=== PATIENT | male | born 1950 | race Caucasian/White ===

== ENCOUNTER → 2017-04-28 | Outpatient (CLI) | payer MEDICARE ==
[2017-04-28 11:07] LABS: Albumin 4.3 g/dL (3.5-5.0); Calcium 9.5 mg/dL (8.4-10.2); Potassium 5.1 mmol/L (3.5-5.1); Total Bilirubin 0.3 mg/dL (0.2-1.3)
== END | disposition home or self-care (01) ==
LOC: LABWHC1 09:52
PROVIDERS: ATTEND Internal Medicine Interventional Cardiology
DX: E78.2 Mixed hyperlipidemia (principal)
CPT/HCPCS: 36415; 80053; 80061

== ENCOUNTER 2017-08-23 13:44 | Day surgery (SDC) | payer MEDICARE ==
[2017-08-17 10:50] VITALS: BMI 29.9
[2017-08-23 14:29] LABS: Basophils % (A) 0 %; Eosinophils # (A) 0.3 k/uL (0-0.7); Eosinophils % (A) 4 %; HCT 43.5 % (39.0-53.0); HGB 14.9 gm/dL (13.0-17.5); Lymphocytes # (A) 2.7 k/uL (1.0-4.8); Lymphocytes % (A) 31 %; MCH 31.4 pg (25.0-35.0); MCHC 34.2 g/dL (31.0-37.0); MCV 91.9 fL (80.0-100.0); Mean Platelet Volume 7.2; Monocytes # (A) 0.6 k/uL (0-1.0); Monocytes % (A) 7 %; Neutrophils # (A) 4.8 k/uL (1.3-7.7); Neutrophils % (A) 56 %; Platelet Count 190 k/uL (150-450); RBC 4.73 m/uL (4.30-5.90); RDW 12.9 % (11.5-15.5); WBC 8.6 k/uL (3.8-10.6)
[2017-08-23 14:33] LABS: Glucose,Whole Blood 112 mg/dL (75-99)
[2017-08-23 14:37] LABS: Calcium 9.3 mg/dL (8.4-10.2); INR 1.4 (<1.2); Prothrombin Time 13.2 sec (9.0-12.0)
[2017-08-23 14:41] LABS: Potassium 5.1 mmol/L (3.5-5.1)
[2017-08-23] MEDS ORDERED: SODIUM CHLORIDE 0.9% 400 ML IV ONE (15:52)
[2017-08-23] MEDS ORDERED: LIDOCAINE 1% INJ 10MG/ML (20 ML MDV) ONE ×3 (16:11→16:44)
[2017-08-23] MEDS ORDERED: ACETAMINOPHEN TAB 325 MG TAB PO PRN (16:24)
[2017-08-23] MEDS ORDERED: HYDROcodone/APAP 5-325MG 1 EACH TAB PO PRN (16:24)
[2017-08-23] MEDS ORDERED: ACETAMINOPHEN IV (For NPO) 1,000 MG in EMPTY BAG 1 BAG IVPB ONE (16:24)
[2017-08-23] MEDS ORDERED: ceFAZolin 1,000 MG in SODIUM CHLORIDE 0.9% IRRIGATIO 250 ML IRRIGATION ONE (16:25)
[2017-08-23] MEDS ORDERED: ceFAZolin IN SWFI 2 GM/20 ML SYRINGE IVP ONE (16:25)
[2017-08-23] MEDS ORDERED: PHENYLEPHRINE-0.9% NACL SYG 1 MG/10 ML SYRINGE ONE (16:29)
[2017-08-23] MEDS ORDERED: fentaNYL (PF) 50 MCG/ML 2 ML AMP ONE (16:29)
[2017-08-23] MEDS ORDERED: MIDAZOLAM 2 MG/2 ML VIAL ONE (16:29)
[2017-08-23] MEDS ORDERED: PROPOFOL 10 MG/ML 20 ML VIAL IV ONE (16:29)
[2017-08-23] MEDS: LIDOCAINE 1% INJ 10MG/ML (20 ML MDV) ONE ×2 (16:38→17:42)
[2017-08-23] MEDS ORDERED: LACTATED RINGERS 1,000 ML IV ONE (17:00)
[2017-08-23] MEDS ORDERED: ceFAZolin IN SWFI 2 GM/20 ML SYRINGE IVP SCH (18:00)
[2017-08-23] MEDS: LACTATED RINGERS 1,000 ML IV SCH (18:11)
[2017-08-23] MEDS ORDERED: ACETAMINOPHEN IV (For NPO) 1,000 MG/100 ML VIAL IVPB ONE (18:30)
[2017-08-23] MEDS ORDERED: DEXTROSE 50%-WATER 50 ML SYRINGE IVP ONE (19:12)
--- NOTE | 2017-08-23 19:16 | PCN ---
PROCEDURE NOTE Mr. Parks is a gentleman who underwent single-chamber ICD implantation for primary prevention of sudden cardiac based upon the data. He has severe ischemic cardiomyopathy, ejection fraction 30-35% of chronic nature. On guideline directed medical treatment. 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 Patient was brought to the EP lab in a fasting state. Written informed consent was obtained prior to the procedure. The left shoulder area was prepped and draped as per protocol. 1% lidocaine was used for local anesthesia. A 4 cm incision was made parallel to the deltopectoral groove, about 1.5 cm medial to it. The incision was carried down to the level of the pectoralis muscle. A subfascial pocket was made. Hemostasis was assured. The left axillary vein was accessed at a single point under fluoroscopy and via appropriately-sized introducer sheath a lead was positioned in the RV septum and screwed in using the current of injury protocol. The R-waves were 30 mV, pacing impedance 1391 ohms, pacing threshold 1 V at 0.5 milliseconds. 10 V test negative. Both leads were secured to the underlying pectoralis fascia using 2 nonabsorbable sutures. Pocket was irrigated with antibiotic solution. Leads connected to the generator (Medtronic device model number [id number], serial number [id number]). The RV lead was a Medtronic model #6935M 62 cm length and serial number [id number]. This was screwed in the RV septum. Using COI protocol. The current of injury protocol. The patient tolerated the procedure well without any acute complications. The wound was closed in 3 layers and dressed per protocol. The device was then programmed to a backup pacing of VVI 40 beats per minute and a VF zone at 214 beats per minute. VT zone at 176 beats per minute. The monitor VT zone of 150 beats per minute. Appropriate antitachycardia pacing cardioversion defibrillation programmed and DFT testing was deferred at this point. It will be performed in 3 months with further maximization of medical treatment. The patient tolerated the procedure well without any acute complications. MMODL / IJN: [id number] /
[2017-08-23 19:23] LABS: Glucose,Whole Blood 62 mg/dL (75-99)
[2017-08-23 19:23] LABS: Glucose,Whole Blood 61 mg/dL (75-99)
[2017-08-23 19:35] LABS: Glucose,Whole Blood 113 mg/dL (75-99)
--- NOTE | 2017-08-23 19:57 | CT ---
EXAMINATION TYPE: CT brain wo con DATE OF EXAM: 08/23/2017 COMPARISON: NONE HISTORY: Diplopia after pacemaker insertion. CT DLP: 991.3 mGycm Automated exposure control for dose reduction was used. FINDINGS: There is diffuse cerebral cortical atrophy. There is no mass effect nor midline shift. There is no ev idence of intracranial hemorrhage. There is patchy hypodensity in the periventricular white matter. T he calvarium is intact. IMPRESSION: CEREBRAL ATROPHY AND MODERATE CHRONIC SMALL VESSEL ISCHEMIA. NO ACUTE INTRACRANIAL ABNORMALITY.
[2017-08-23] MEDS ORDERED: ATORVASTATIN 80 MG TAB PO SCH (21:00)
[2017-08-23] MEDS ORDERED: AMITRIPTYLINE HCL 50 MG TAB PO SCH (21:00)
--- NOTE | 2017-08-23 21:47 | P.CNNES ---
History of Present Illness Consult date: 08/23/17 Reason for Consult: Patient being evaluated for diplopia of 1 week duration. History of Present Illness: This patient is a 66-year-old right-handed white male who has a history of severe cardiomyopathy. Patient was admitted today for outpatient procedure which was placement of a single-chamber ICD implantation for primary prevention of sudden cardiac . As noted patient has a history of severe ischemic cardiomyopathy with a ejection fraction of 30%. It is been chronic in nature. He is followed in the cardiology clinic with Dr. Eagle and Dr. Dye. He underwent the procedure today successfully and was making good recovery. He did mention to Dr. Dye that he was having double vision for the past 4 days. For this reason neurology was consulted today for further evaluation. He was also complaining of bitemporal headache pain. The patient states that he has a history of having undergone three-vessel coronary artery bypass grafting in 2007 when he was in [place]. He was working at the time as a what job titles mean. [facility] was [facility] [place] [facility]. He has been back since his heart surgery and is followed [facility] [place]. He states that he had no previous history of double vision until 4 days ago. He describes it as a horizontal diplopia. Due to his sudden onset of symptoms he was sent for a stat computed tomography scan of the brain today the results of which indicated cerebral atrophy and moderate chronic small vessel ischemia. No acute intracranial abnormality was noted. We would like to obtain an MRI of the brain for further evaluation however given the ICD implantation he may not be able to have an MRI done. We will need to check this with Dr. Dye tomorrow. The patient states that his double vision is easily managed if he covers one eye. We have recommended that he use an eye patch. Being [facility] he should follow-up with a building principal through the [facility] in [place]. We did review the results of the CAT scan today with the patient. He has been on Coumadin therapy since his bypass surgery in 2007. His INR today was 1.4. He is being followed by his rn rehab following the procedure. As noted he is unable to have MRI at this time unless cleared by Dr. Ruelas given that he had a ICD implantation today. We would recommend further testing for his risk factors for stroke including carotid Doppler ultrasound as well as laboratory testing to include lipid profile. Patient denies any previous history of stroke. His clinical history and exam findings suggest possibility of brainstem ischemia. Once again MRI would be the best neurodiagnostic tests for him. We will await further assessment from ophthalmology and cardiology. The patient otherwise seems to be doing well. He denies any focal weakness, slurred speech, or paresthesias. He has been complaining of bitemporal headache as well which has been off and on. He states he uses Anacin which is been working quite well for him. Neurology is now been consulted for further evaluation and recommendations. Review of Systems Constitutional: Denies chills, Denies fever Eyes: left diplopia, denies blurred vision, denies pain Ears, nose, mouth and throat: Denies headache, Denies sore throat Cardiovascular: Denies chest pain, Denies shortness of breath Respiratory: Denies cough Gastrointestinal: Denies abdominal pain, Denies diarrhea, Denies nausea, Denies vomiting Musculoskeletal: Denies myalgias Integumentary: Denies pruritus, Denies rash Neurological: Reports double vision, Denies numbness, Denies weakness Psychiatric: Denies anxiety, Denies depression Endocrine: Denies fatigue, Denies weight change Past Medical History Past Medical History: Diabetes Mellitus, Pulmonary Embolus (PE) Additional Past Medical History / Comment(s): see Dr Dye H&P, states kidney problem-not sure what but will be seeing kidney doctor History of Any Multi-Drug Resistant Organisms: None Reported Past Surgical History: Coronary Bypass/CABG, Joint Replacement Additional Past Surgical History / Comment(s): triple CABG 2007, rt knee replacement, surgery left thumb from injury, Past Anesthesia/Blood Transfusion Reactions: No Reported Reaction Smoking Status: Former smoker - Past Family History Mother Family Medical History: Cancer Medications and Allergies Home Medications Medication Instructions Recorded Confirmed Type Amitriptyline HCl [Elavil] 150 mg PO HS 08/17/17 08/17/17 History Aspirin [Adult Low Dose Aspirin EC] 81 mg PO DAILY 08/17/17 08/17/17 History Atorvastatin Calcium [Lipitor] 80 mg PO HS 08/17/17 08/17/17 History Docusate [Colace] 300 mg PO DAILY 08/17/17 08/17/17 History HYDROcodone/APAP 10-325MG [[place] 2 tab PO QID PRN 08/17/17 08/17/17 History 10-325] Insulin Aspart [NovoLOG Flexpen] 20 units SQ AC-TID 08/17/17 08/17/17 History Lisinopril [Zestril] 20 mg PO DAILY 08/17/17 08/17/17 History Metoprolol Tartrate [Lopressor] 50 mg PO BID 08/17/17 08/17/17 History Sildenafil Citrate [Viagra] 100 mg PO DIRECTED PRN 08/17/17 08/23/17 History Warfarin [Coumadin] 5 mg PO DAILY 08/17/17 08/17/17 History Allergies Allergy/AdvReac Type Severity Reaction Status Date / Time No Known Allergies Allergy Verified 08/17/17 10:31 Physical Examination - Vital Signs Vital Signs: Vital Signs Temp Pulse Pulse Pulse Resp BP BP 08/23/17 19:44 98.0 F 58 L 18 145/86 08/23/17 19:17 59 L 18 138/74 08/23/17 18:55 58 L 16 139/73 08/23/17 18:40 59 L 16 1134/73 08/23/17 18:25 62 18 115/59 08/23/17 18:10 97.0 F L 68 16 117/61 08/23/17 14:21 98.2 F 66 20 159/78 Pulse Ox 08/23/17 19:44 96 08/23/17 19:17 97 08/23/17 18:55 98 08/23/17 18:40 97 08/23/17 18:25 98 08/23/17 18:10 98 08/23/17 14:21 97 Intake and Output 08/23/17 08/23/17 08/23/17 06:59 14:59 22:59 Intake Total 1000 Balance 1000 Intake: IV 1000 - Constitutional General appearance: average body habitus, cooperative - EENT EENT: PERRL, mucous membranes moist - Respiratory Respiratory: lungs clear, normal breath sounds - Cardiovascular Cardiovascular: regular rate, normal S1, normal S2 Extremities: no peripheral edema bilaterally - Gastrointestinal Gastrointestinal: normoactive bowel sounds - Integumentary Integumentary: normal - Neurologic Cranial nerve examination: PERRL, EOMI (Patient has a left sixth cranial nerve palsy.), VFF, V1/V2/V3 grossly intact, face symmetric, tongue midline, intact gag reflex, intact corneal reflex, normal palatal elevation Speech examination: intact Sensorimotor examination: intact Motor examination - right side: 4/5: biceps, triceps, wrist flexion, wrist extension, dog or horse racing official, hip flexors, knee extensors, dorsiflexion, toe extension (EHL) , plantarflexion Motor examination - left side: 4/5: biceps, triceps, wrist flexion, wrist extension, dog or horse racing official, hip flexors, knee extensors, dorsiflexion, toe extension (EHL) , plantarflexion Detailed sensory examination: intact Reflex and gait examination: intact Reflexes: 1+: ankle, bicep, knee, tricep - Musculoskeletal Musculoskeletal: no pain - Psychiatric Psychiatric: mood/affect appropriate, cooperative Results - Laboratory Findings CBC and BMP: 08/23/17 14:20 08/23/17 14:20 Abnormal Lab Findings: Abnormal Labs 08/23/17 08/23/17 08/23/17 14:15 14:20 14:20 PT 13.2 H INR 1.4 H Chloride 109 H Carbon Dioxide 20 L BUN 22 H Creatinine 2.20 H Glucose 100 H POC Glucose (mg/dL) 112 H 08/23/17 08/23/17 08/23/17 19:00 19:02 19:34 PT INR Chloride Carbon Dioxide BUN Creatinine Glucose POC Glucose (mg/dL) 61 L 62 L 113 H Assessment and Plan (1) Sixth [abducent] nerve palsy, left eye Current Visit: Yes Status: Acute Code(s): H49.22 - SIXTH [ABDUCENT] NERVE PALSY, LEFT EYE SNOMED Code(s): 962919537 (2) Chronic headache Current Visit: Yes Status: Acute Code(s): R51 - HEADACHE SNOMED Code(s): 091819513 (3) Ischemic cardiomyopathy Current Visit: Yes Status: Acute Code(s): I25.5 - ISCHEMIC CARDIOMYOPATHY SNOMED Code(s): 432650037 (4) S/P implantation of automatic cardioverter/defibrillator (AICD) Current Visit: Yes Status: Acute Code(s): Z95.810 - PRESENCE OF AUTOMATIC ( IMPLANTABLE) CARDIAC DEFIBRILLATOR SNOMED Code(s): 575585988 Plan: This patient is a 66-year-old male who underwent single-chamber ICD implantation today by Dr. Dye. Patient mentioned today that he was having four-day history of diplopia. For this reason neurology was consulted. He is also complaining of chronic bitemporal headache pain. His neurological examination reveals evidence of a left sixth cranial nerve palsy. Exact etiology is undetermined at this time. He does have history of diabetes mellitus over the years. Clinical findings suggest possibility of brainstem stroke versus diabetic ischemic neuropathy. At this time we have recommended a computed tomography scan of the brain to be done which was completed results of which are noted above. It is unclear if he can have a MRI due to the implantation of the ICD device today. We will await further input from Dr. Dye. Patient should use an eye patch at this time for management of his diplopia. We will obtain laboratory testing for all treatable causes of vasculitis and headache. Would recommend ophthalmology consultation for the patient as well. His overall prognosis at this time remains very guarded. We will continue close neurological follow-up for the patient during this admission. Time with Patient: Greater than 30
[2017-08-23] MEDS: METOPROLOL TARTRATE 50 MG TAB PO SCH (22:02)
[2017-08-23 23:46] VITALS: RESP 16
[2017-08-24] MEDS: ceFAZolin IN SWFI 2 GM/20 ML SYRINGE IVP SCH ×4 (01:07→16:15)
[2017-08-24 06:50] LABS: Glucose,Whole Blood 77 mg/dL (75-99)
[2017-08-24 07:07] LABS: INR 1.4 (<1.2); Prothrombin Time 13.1 sec (9.0-12.0)
[2017-08-24 07:12] LABS: Cholesterol 157 mg/dL (<200); HDL Cholesterol 34 mg/dL (40-60); LDL Cholesterol,Calculated 86 mg/dL (0-99); Triglycerides 187 mg/dL (<150)
[2017-08-24] MEDS: LACTATED RINGERS 1,000 ML IV SCH (07:45)
[2017-08-24] MEDS: INSULIN ASPART 100 UNIT/ML 1 ML 10 ML VIAL SQ SCH ×2 (07:46→13:10)
--- NOTE | 2017-08-24 08:02 | US ---
EXAMINATION TYPE: US carotid duplex BILAT DATE OF EXAM: 08/24/2017 COMPARISON: NONE CLINICAL HISTORY: Patient with brainstem stroke.. EXAM MEASUREMENTS: RIGHT: Peak Systolic Velocity (PSV) cm/sec ----- Right CCA: 74.0 ----- Right ICA: 65.3 ----- Right ECA: 76.9 ICA/CCA ratio: 0.9 RIGHT: End Diastole cm/sec ----- Right CCA: 12.9 ----- Right ICA: 12.9 ----- Right ECA: 8.6 LEFT: Peak Systolic Velocity (PSV) cm/sec ----- Left CCA: 68.5 ----- Left ICA: 100.3 ----- Left ECA: 92.4 ICA/CCA ratio: 1.5 LEFT: End Diastole cm/sec ----- Left CCA: 14.1 ----- Left ICA: 25.4 ----- Left ECA: 5.7 VERTEBRALS (direction of flow): Right Vertebral: Antegrade Left Vertebral: Antegrade Rhythm: Normal Grayscale images show mild to moderate eccentric plaque at right carotid bulb. There is more prominen t moderate to borderline severe eccentric plaque at left carotid bulb. Velocity measurements and rati os in visualized portion of both internal carotid arteries remain within normal limits. IMPRESSION: Fairly moderate atherosclerotic change bilaterally, left greater than right without hemo dynamically significant stenosis clearly seen in either internal carotid artery .
[2017-08-24 08:25] LABS: C Reactive Protein <5.0 mg/L (<10.0)
--- NOTE | 2017-08-24 08:26 | DS ---
DISCHARGE SUMMARY Mr. Parks is a 66-year-old male patient who underwent single-chamber ICD implantation yesterday for severe ischemic cardiomyopathy and class 2 heart failure. He is doing well from a cardiac standpoint. His ICD site is healing well. There is no hematoma. No soakage. He has no chest pain. No dizziness or lightheadedness. PHYSICAL EXAMINATION: On examination, his vitals are stable. Blood pressure is 145/76 mmHg, pulse rate is in the 50s. He is afebrile. Head and neck examination is normal. Heart sounds are normal. Lungs are clear to auscultation. Extremities are warm. No edema. IMPRESSION: 1. Chronic left ventricular systolic function. 2. Old myocardial infarction. 3. Ischemic cardiomyopathy, chronic in nature on appropriate medical treatment. 4. Diabetes. 5. Chronic kidney disease. 6. Congestive heart failure systolic, class 2. PLAN: Discharge home after completion of IV antibiotics. Follow up in the device clinic. Follow up with Dr. Eagle. He will continue his current medications. Device interrogation will be performed today. We are awaiting final report of chest x-ray. MMODL / IJN: [id number] /
[2017-08-24] MEDS ORDERED: ASPIRIN 81 MG PO SCH (09:00)
[2017-08-24] MEDS ORDERED: LISINOPRIL 20 MG TAB PO SCH (09:00)
--- NOTE | 2017-08-24 09:12 | XR ---
EXAMINATION TYPE: XR chest 2V DATE OF EXAM: 08/24/2017 COMPARISON: Chest x-ray March 18, 2011 HISTORY: Arrhythmia status post pacemaker/defibrillator insertion TECHNIQUE: Frontal and lateral views of the chest are obtained. FINDINGS: The osseous structures remain intact. There is chronic parenchymal change with left basila r scarring and/or atelectasis redemonstrated. There is no new suspicious focal airspace opacity, pleu ral effusion, or pneumothorax seen bilaterally. Overlying sternal wires and mediastinal clips are red emonstrated. There is new single lead right pacemaker/AICD terminating in the right ventricle. Underl karin cardiomegaly is redemonstrated. New right suprahilar linear atelectasis and/or scarring is prese nt. IMPRESSION: New single lead pacemaker/AICD terminating in right ventricle. No radiographic complicat ion related to procedure identified.
[2017-08-24] MEDS: METOPROLOL TARTRATE 50 MG TAB PO SCH (09:41)
[2017-08-24 11:26] VITALS: BP 168/73; PULSE 89; TEMP 98.6
[2017-08-24 12:48] LABS: Glucose,Whole Blood 171 mg/dL (75-99)
[2017-08-24 13:51] LABS: Hemoglobin A1C 8.3 % (4.0-6.0)
[2017-08-24] MEDS ORDERED: WARFARIN 5 MG TAB PO SCH (18:00)
== END 2017-08-24 16:46 | disposition home or self-care (01) ==
LOC: CATHEP 13:44 → 3OBS 17:45 → CATHEP 08-24 16:46
PROVIDERS: ATTEND Internal Medicine Clinical Cardiac Electrophysiology
DX: I25.5 Ischemic cardiomyopathy (principal); H49.22 Sixth [abducent] nerve palsy, left eye; R51 Headache; G89.29 Other chronic pain; I65.23 Occlusion and stenosis of bilateral carotid arteries; Z00.6 Encounter for examination for normal comparison and control in clinical research program; I13.0 Hypertensive heart and chronic kidney disease with heart failure and stage 1 through stage 4 chronic kidney disease, or unspecified chronic kidney disease; I50.22 Chronic systolic (congestive) heart failure; N18.9 Chronic kidney disease, unspecified; E11.22 Type 2 diabetes mellitus with diabetic chronic kidney disease; I73.9 Peripheral vascular disease, unspecified; E78.2 Mixed hyperlipidemia; I25.10 Atherosclerotic heart disease of native coronary artery without angina pectoris; I47.1 Supraventricular tachycardia; I25.2 Old myocardial infarction; Z95.1 Presence of aortocoronary bypass graft; Z96.651 Presence of right artificial knee joint; Z79.01 Long term (current) use of anticoagulants; Z79.4 Long term (current) use of insulin; Z79.82 Long term (current) use of aspirin; Z79.899 Other long term (current) drug therapy; Z86.711 Personal history of pulmonary embolism; Z87.891 Personal history of nicotine dependence
CPT/HCPCS: 93005; 33249; 80061; 80048; 85652; 85025; 85610 ×2; 86140; 83036; 71046; 93880; 70450; C1769 ×3; C1892; C1895; C1722; J2250; J0690 ×3; J2001; J3010; J0131; J2370; J2704

== ENCOUNTER → 2017-12-02 | Day surgery (SDC) | payer MEDICARE ==
[2017-11-29 15:40] VITALS: BMI 30.1
[~2017-12-02] MED LIST: IV FLUID CONTINUATION 500 ML IV ONE; LACTATED RINGERS 1,000 ML IV SCH; PROPOFOL 10 MG/ML 20 ML VIAL IV ONE; SODIUM CHLORIDE 0.9% 1,000 ML IV SCH
[2017-12-02 07:56] LABS: Glucose,Whole Blood 99 mg/dL (75-99)
[2017-12-02 08:03] LABS: INR 2.7 (<1.2); Prothrombin Time 24.6 sec (9.0-12.0)
[2017-12-02 08:17] LABS: Calcium 9.1 mg/dL (8.4-10.2); Potassium 4.5 mmol/L (3.5-5.1)
--- NOTE | 2017-12-02 08:59 | P.PCN ---
Preoperative Diagnosis: Diagnosis Ischemic cardiomyopathy chronic LV systolic dysfunction class II heart failure status post single chamber ICD COI protocol observed at initial implant Cinefluoroscopy of the leads Cinefluoroscopy of the lead shows of the RV lead is in stable position in the mid to high RV septum as compared to the immediate post-implant images no fractures or breaks noted Medtronic ICD this was interrogated R waves greater than 20 mV pacing threshold 0.75 V at 0.5 ms T-wave oversensing noted during RV pacing RV pacing impedance 437 ohms RV defib coil impedance 74 ohms COI protocol was followed at implant DFT testing and anesthesia. Shock and T wave protocol was used to induce for atrial fibrillation. This was adequately and appropriately detected at least sensitivity with 2 dropouts and successfully internally defibrillated with 10 J shock no post shock noise the charge time 2.0 seconds shocking impedance 74 ohms delivered energy 10 J Device was then reprogrammed with long detection intervals in the VT zone and we have zone to minimize inappropriate ICD shocks Appropriate antitachycardia pacing cardioversion defibrillations reprogrammed First cardioversion at 10 J first defibrillation at 20 J Result Excellent pacing and sensing function and DFT at or below 10 J in follow-up several months after the original implant Disposition: same day
[2017-12-02 09:04] VITALS: TEMP 97.9
[2017-12-02 09:14] VITALS: RESP 16
[2017-12-02 10:18] VITALS: BP 139/65; PULSE 45
== END | disposition home or self-care (01) ==
LOC: CATHEP 06:48
PROVIDERS: ATTEND Internal Medicine Clinical Cardiac Electrophysiology
DX: T82.110A Breakdown (mechanical) of cardiac electrode, initial encounter (principal); I25.5 Ischemic cardiomyopathy; I11.0 Hypertensive heart disease with heart failure; E11.51 Type 2 diabetes mellitus with diabetic peripheral angiopathy without gangrene; E78.2 Mixed hyperlipidemia; I50.22 Chronic systolic (congestive) heart failure; I25.10 Atherosclerotic heart disease of native coronary artery without angina pectoris; Z79.82 Long term (current) use of aspirin; Z79.4 Long term (current) use of insulin; Z79.01 Long term (current) use of anticoagulants; Z95.1 Presence of aortocoronary bypass graft; Z87.891 Personal history of nicotine dependence; Z86.711 Personal history of pulmonary embolism; Z96.652 Presence of left artificial knee joint; Z95.810 Presence of automatic (implantable) cardiac defibrillator; I25.2 Old myocardial infarction; Z86.718 Personal history of other venous thrombosis and embolism
CPT/HCPCS: 93642; 76000; 80048; 85610; J2704

== ENCOUNTER → 2023-01-11 | Outpatient (CLI) | payer MEDICARE ==
[2023-01-11 08:44] LABS: African American GFR (CKD) 20 (>60 ml/min/1.73 sqM); Blood Urea Nitrogen 32 mg/dL (9-20); Non-African American GFR(CKD) 17 (>60 ml/min/1.73 sqM)
--- NOTE | 2023-01-11 09:59 | CT ---
EXAMINATION TYPE: CT chest wo con CT DLP: 481.50 mGycm, Automated exposure control for dose reduction was used. DATE OF EXAM: 01/11/2023 9:33 AM COMPARISON: None CLINICAL INDICATION:Male, 72 years old with history of R06.02 SOB; PHH, YARITZA, SOB TECHNIQUE: Multiple axial images were obtained through the chest. Sagittal and coronal reformats were created for review. Contrast used: mL of (None if empty) Oral contrast used: (None if empty) FINDINGS: LUNGS/ PLEURA: Small bilateral pleural effusions with associated atelectasis. Thrombus opacities thro ughout the lungs likely on basis of pulmonary vascular congestion. No focal consolidation or pneumoth orax. Right apical nodule with calcification measuring 9 mm. AIRWAY: Patent and unremarkable. HEART: Heart is enlarged for size. Coronary artery atherosclerosis. Calcifications along the left delia tricular wall compatible with prior injury. Cardiac pacemaker present with leads terminating in the r ight ventricle. MEDIASTINUM: No gross evidence of adenopathy. VASCULATURE: No aortic aneurysm. Atherosclerosis of the arterial vasculature. MUSCULOSKELETAL: Moderate disc degeneration changes are present throughout the thoracolumbar spine., sternotomy changes are present. SOFT TISSUES/LYMPH NODES: Unremarkable. LOWER NECK: No significant findings. UPPER ABDOMEN: Atrophic appearing kidneys. IMPRESSION: 1. Cardiomegaly with severe coronary artery calcifications and evidence of prior infarct with left v entricular calcifications. There is additionally bilateral small pleural effusions. In some groundgla ss opacities throughout the lungs. Correlate with serum BNP for congestive heart failure. 2. Right apical pulmonary nodule measuring up to 9 mm with calcification, short-term follow-up in 3 months recommended to ensure stability.
== END | disposition home or self-care (01) ==
LOC: RADCTMAIN 08:05
PROVIDERS: ATTEND Internal Medicine
DX: J84.9 Interstitial pulmonary disease, unspecified (principal); I25.10 Atherosclerotic heart disease of native coronary artery without angina pectoris; I50.9 Heart failure, unspecified; J90 Pleural effusion, not elsewhere classified; I51.7 Cardiomegaly; R91.8 Other nonspecific abnormal finding of lung field; R91.1 Solitary pulmonary nodule
CPT/HCPCS: 71250; 82565; 84520